=== PATIENT | male | born 1990 | race American Indian/Alaskan Native ===

== ENCOUNTER 2016-12-26 22:03 | Emergency (ER) | payer OTHER, MEDICARE ==
[2016-12-26 23:36] VITALS: BP 126/66
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
[2016-12-27] MEDS ORDERED: TORADOL IM ONE (01:30)
== END 2016-12-27 02:41 | disposition home or self-care (01) ==
LOC: ED 22:03
DX: S09.90XA Unspecified injury of head, initial encounter (principal); M54.5 Low back pain; M25.512 Pain in left shoulder; M25.552 Pain in left hip; F17.200 Nicotine dependence, unspecified, uncomplicated; F12.10 Cannabis abuse, uncomplicated; V49.49XA Driver injured in collision with other motor vehicles in traffic accident, initial encounter; Y93.89 Activity, other specified; Y99.8 Other external cause status; Y92.488 Other paved roadways as the place of occurrence of the external cause
CPT/HCPCS: 96372; 99282; J1885